=== PATIENT | female | born 1995 | race Caucasian/White ===

== ENCOUNTER 2016-11-04 17:52 | Emergency (ER) | payer MEDICAID ==
--- NOTE | 2016-11-04 18:08 | ED Physician Chart ---
Chief Complaint/HPI - Patient Information Date Seen:: 11/04/16 Time Seen:: 18:00 Chief Complaint:: Oral injury History of Present Illness:: Pt sustained oral injury when she was accidentally hit by a soft ball during the game earlier today. No LOC. No other bodily injury or pain. No MUSTAFA. No visual changes in terms of blurry vision or diplopia. No weakness or numbness. No N/V. No mentation change. Allergies:: Allergies Allergy/AdvReac Type Severity Reaction Status Date / Time No Known Allergies Allergy Verified 11/04/16 17:59 Vitals:: see Nurse Note. Historian:: Patient Family MD/PCP:: Dr. Mustafa LMP:: 10/15/16 Review:: Nurse's Note Reviewed Review of Systems - Review of Systems General/Constitutional: No fever, No chills, No weight loss, No weakness, No diaphoresis Skin: Other (R lower lip injury.) Head: No headache, No light-headedness Eyes: No loss of vision, No pain, No diplopia ENT: No earache, No nasal drainage, No sore throat, No tinnitus Neck: No neck pain, No swelling, No stiffness, No mass noted Cardio Vascular: No chest pain, No palpitations, No edema Pulmonary: No SOB, No cough, No wheezing GI: No nausea, No vomiting, No pain G/U: No dysuria, No frequency, No hematuria Musculoskeletal: No bone or joint pain, No back pain Endocrine: No polyuria, No polydipsia Psychiatric: No prior psych history Hematopoietic: No lymphadenopathy Neurological: No syncope, No focal symptoms, No weakness, No headache, No confusion Past Medical History - Past Medical History Past Medical History: No significant medical hx Family History: HTN (MGM) Social History: Non Smoker, No Alcohol, No Drug Use, , Employed, Other ( lives with her ) Employment:: packaging Surgical History: None Psychiatricy History: None Medication: Reviewed Family Medical History - Family Member Mother Ethnicity: Hx Family Coronary Artery Disease: No Hx Family Congestive Heart Failure: No Hx Family Hypertension: No Hx Family Stroke: No Hx Family Diabetes: No Hx Family Dementia: No Hx Family AIDS: No Hx Family Hepatitis: No Hx Family Psychiatric Problems: No Physical Exam - Physical Examination General/Constitutional: Awake, Well-developed, well-nourished, Alert, No distress, GCS 15, Non-toxic appearing, Ambulatory Other Gen/Cons comments:: Breathes comfortably, speaks clearly, and ambulates without difficulty. Head: Atraumatic (except oral findings below.) Eyes: Lids, conjuctiva normal Skin: Well hydrated, No lymphadenopathy ENMT: External ears, nose nl, TM canals nl (No hemoptympanus), Nasal exam nl, Oropharynx nl (except an approx 1 cm superficial laceration noticed at R lower lip inner mucosa. R upper 2nd premolar tooth is broken near the base. No active bleeding. Good ROM of upper and lower jaws. (Pt states that she lost most of her broken tooth and could not find it)), Tonsils nl Neck: Nontender, Full ROM w/o pain, No nuchal rigidity, No mass, No stridor Respiratory: Nl effort/Exclusion, Clear to Auscultation, No Wheeze/Rhonchi/Rales Cardio Vascular: RRR, No murmur, gallop, rubs, NL S1 S2 GI: No tenderness/rebounding/guarding, No organomegaly, No hernia, Normal BS's, Nondistended, No mass/bruits, No McBurney tenderness Other GI comments:: Abdomen is soft. Extremities: No edema Neuro/Psych: Alert/oriented (oriented x 3), Judgement/insight normal, Mood normal, Normal gait, No focal deficits ED Septic Shock - . Is Septic Shock (SBP<90, OR Lactate>4 mmol\L) present?: No Reassessment (Disposition) - Reassessment Reassessment:: 1899 Pt's mucosal laceration was well irrigated with sterile normal saline and was explored. No foreign body found. No active bleeding. 1929 Pt feels much better. Pt requests to go home now and does not want further observation/management at hospital. Aftercare instructions have been given. Reassessment Condition:: Improved - Diagnosis Diagnosis:: Oral trauma with right inner lip superficial mucosal laceration and broken R 2nd upper premolar tooth, stable. - Aftercare/Follow up Instructions Aftercare/Follow-Up Instructions:: Refer to Discharge Instructions Notes:: Oral hygiene instructions given. Oral gargle with salt solution after eating to keep food particules from trapping in mucosal laceration site. May take Motrin 200 mg tab 3-4 tabs po q8h prn pain. Cold compress to affected areas for 15 minutes q2h as directed. F/U with PCP Dr. Mustafa as well as pt 's dentist in one day for recheck. Return to ER immediately if condition worsens or if any further questions/problems. Medication Prescribed:: None - Patient Disposition Discharge/Transfer:: Home Time:: 19:45 Condition at Disposition:: Stable, Improved ED Discharge Plan - Patient Disposition Admit/Discharge/Transfer: PT DISCHARGED HOME Instructions: Dental Fracture, Mouth Injury, Generic, [id number] Additional Instructions: FOLLOW UP WITH YOUR DOCTOR AND DENTIST IN 1-2 DAYS AND TO COME BACK TO ER IF SYMPTOMS WORSEN
== END 2016-11-04 19:50 | disposition home or self-care (01) ==
LOC: ER 17:52
DX: S01.512A Laceration without foreign body of oral cavity, initial encounter (principal); X58.XXXA Exposure to other specified factors, initial encounter; Y93.64 Activity, baseball; Y92.89 Other specified places as the place of occurrence of the external cause; Y99.8 Other external cause status